=== PATIENT | female | born 2000 | race African-American/Black ===

== ENCOUNTER → 2022-04-06 | Emergency (ER) | payer MEDICAID, OTHER ==
[~2022-04-06] VITALS: Ht 157.5 cm; Wt 80.0 kg
[~2022-04-06] MED LIST: FAMOTIDINE 20MG/2ML VIAL IV STA; IBUP-2030 MT; KETOROLAC 60MG/2ML VIAL IM ONE; ONDANSETRON HCL 4MG/2ML INJ IV STA; SODIUM CHLORIDE 0.9% 1,000 ML IV ONE
[2022-04-06 12:44] VITALS: BP 135/87
[2022-04-06 15:43] LABS: BASOPHILS % 0.7 % (0.0-2.0); EOSINOPHILS % 2.1 % (0.0-5.0); HEMATOCRIT. 39.4 % (36.0-48.0); HEMOGLOBIN. 13.9 g/dL (12.0-16.0); LYMPHOCYTES % 46.6 % (20.0-50.0); MEAN CORPUSCULAR HEMOGLOBIN 32.3 pg (28.0-32.0); MEAN CORPUSCULAR VOLUME 91.6 fL (81.0-99.0); MEAN PLATELET VOLUME 7.4 fl (7.4-10.4); MONOCYTES % 5.8 % (2.0-8.0); NEUTROPHILS % 44.8 % (40.0-76.0); PLATELET 278 x1000/uL (130-400); RED CELL DISTRIBUTION WIDTH 13.2 % (11.6-14.6)
[2022-04-06 15:50] LABS: CHLORIDE 108 mEq/L (98-107)
[2022-04-06 15:52] LABS: CLARITY URINE CLEAR (CLEAR); COLOR URINE YELLOW (YELLOW); INR 1.1; KETONES URINE NEGATIVE (NEGATIVE); LEUKOCYTE ESTERASE URINE NEGATIVE (NEGATIVE); NITRITE URINE NEGATIVE (NEGATIVE); OCCULT BLOOD URINE NEGATIVE (NEGATIVE); PROTEIN URINE 1+ (NEGATIVE); PROTHROMBIN TIME 11.4 sec (9.6-11.0); UROBILINOGEN URINE 0.2 E.U./dL (0.2-1.0)
[2022-04-06 16:01] LABS: HCG SCREEN NEGATIVE
== END | disposition home or self-care (01) ==
LOC: ER 12:41
DX: R10.31 Right lower quadrant pain (principal)
CPT/HCPCS: 36415; 76830; 76856; 80053; 81003; 81025; 83690; 84703; 85025; 85610; 96361; 96372; 96374; 96375; 99285; J1885; J2405; J3490; J7030; Z7610